=== PATIENT | male | born 1980 | race Caucasian/White ===

== ENCOUNTER 2025-03-17 11:56 | Emergency (ER) | payer MEDICAID, SELFPAY ==
[2025-03-17 12:05] VITALS: BP 147/90; PULSE 64; RESP 18; TEMP 36.7; O2SAT 96
--- NOTE | 2025-03-17 12:18 | XR_ITS ---
Examination: CT brain head without contrast. 2-D sagittal coronal reconstructions Date and time of exam:March 17, 2025 1408 hours INDICATIONS: Head pain today CTDI: vol (mGy):49.9 DLP: (mGycm):1008 Technique: Multiple CT axial sections of the brain have been obtained, 5 mm slice thickness. Contrast has not been administered. 2-D sagittal, coronal reconstructions have been obtained Low dose protocols were performed. One or more of the following dose reduction techniques were used; automated exposure control, adjustment of the mA and/or KV according to patient size, use of iterative reconstruction technique. Findings: No significant ventricular enlargement. Benign subarachnoid cyst left temporal lobe tip Intra-axial or extra-axial hemorrhage density is not seen. No mass effect or midline shift Basal cisterns are not remarkable. Fourth ventricle is midline. Cranial vault intact. Impression: Negative for acute hemorrhage, mass effect or midline shift
--- NOTE | 2025-03-17 12:18 | EDRME_ITS ---
Rapid Medical Screening Exam [facility] Arrival date/time: 03/17/25 11:56 45-year-old male presents to the emergency department today for complaints of generalized weakness and fatigue after taking an unknown substance last night Chief Complaint: Allergic Reaction Vital signs: Vital Signs Temperature 98.0 F 03/17/25 12:05 Pulse Rate 64 03/17/25 12:05 Respiratory Rate 18 03/17/25 12:05 Blood Pressure 147/90 H 03/17/25 12:05 Pulse Oximetry (%) 96 03/17/25 12:05 Oxygen Delivery Method Room Air 03/17/25 12:05
--- NOTE | 2025-03-17 12:18 | EKG_ITS ---
[facility] Test Date: 2025-03-17 Pat Name: ZAYNAB GO Department: Room: - Gender: Male Orientor: : 1980 Requested By: Tobias Noble (GERTRUDE) Order Number: [id number] Reading MD: Tobias Noble (GERTRUDE) Measurements Intervals [place] Rate: 65 P: 14 AK: 145 QRS: 1 QRSD: 89 T: 24 QT: 384 QTc: 401 Interpretive Statements SINUS RHYTHM No previous ECG available for comparison /store/S0/[id number]/ecg/[id number].pdf
--- NOTE | 2025-03-17 12:18 | XR_ITS ---
Examination: AP chest single view TECHNIQUE: Portable sitting AP chest single view March 17, 2025 1253 hours INDICATIONS: Onset chest pain today. FINDINGS: Mild parenchymal disease left base laterally Normal heart size Right lung clear IMPRESSION: Suspicious for early left base pneumonia
[2025-03-17 12:48] LABS: Basophils % (Auto) 0 % (0-2.5); Eosinophils # (Auto) 0.1 Thou/mm3 (0.0-0.5); Eosinophils % (Auto) 1 % (0-10); Hematocrit 47.1 % (41.0-53.0); Immature Granulocytes % (Auto) 0 % (0-0); Immature Granulocytes Auto 0.02 Thou/mm3 (0.00-0.00); Lymphocytes # (Auto) 1.3 Thou/mm3 (1.0-4.8); Lymphocytes % (Auto) 12 % (10-50); Mean Corpuscular Hemoglobin 28.6 pg (25.0-35.0); Mean Corpuscular Volume 84 fL (80-100); Monocytes # (Auto) 0.6 Thou/mm3 (0.0-0.8); Monocytes % (Auto) 6 % (0-12); Neutrophils # (Auto) 8.4 Thou/mm3 (1.8-7.7); Neutrophils % (Auto) 80 % (37-80); Nucleated Red Blood Cell % 0 /100 WBC (0); Platelet Count 313 Thou/mm3 (140-440); RDW Standard Deviation 40.3 fL (35.1-43.9); White Blood Count 10.4 Thou/mm3 (3.8-10.6)
[2025-03-17 13:02] LABS: Partial Thromboplastin Time 25.7 Seconds (22.0-36.0); Prothrombin Time 11.2 Seconds (9.0-12.2)
[2025-03-17 13:10] LABS: B-Type Natriuretic Peptide < 20 pg/mL (0-100)
[2025-03-17 14:08] LABS: Alanine Aminotransferase 19 U/L (10-49); Albumin, Serum 4.7 gm/dL (3.5-5.0); Albumin/Globulin Ratio 1.7 (1.2-2.2); Alcohol, Blood Medical < 3.0 mg/dL (0-10.0); Alkaline Phosphatase 109 U/L (46-116); Anion Gap 9 (7-16); Aspartate Amino Transferase 16 U/L (0-34); BUN/Creatinine Ratio 9 Ratio (12-20); Bilirubin,Total 0.6 mg/dL (0.3-1.2); Blood Urea Nitrogen 11 mg/dL (9-23); Calcium 9.5 mg/dL (8.3-10.6); Calcium (Corrected) 9.5 mg/dL (8.5-10.1); Chloride 102 mMol/L (98-107); Creatinine (Component) 1.2 mg/dL (0.6-1.3); Globulin 2.8 gm/dL (2.3-3.5); Glucose 117 mg/dL (74-106); Magnesium 2.4 mg/dL (1.6-2.6); Osmolality,Calculated 279 (275-295); Potassium 4.5 mMol/L (3.4-5.1); Sodium 140 mMol/L (136-145); Total Protein 7.5 gm/dL (5.7-8.2); Troponin I < 0.020 ng/mL (0.0-0.045); eGFR > 60 See Note
--- NOTE | 2025-03-17 16:51 | PD.EDADULT ---
ED General RME/HPI General Chief complaint: Allergic Reaction Stated complaint: TOOK friends Suboxone film (unknown dose), NOT NOR Time Seen by Provider: 03/17/25 14:27 Arrival date/time: 03/17/25 11:56 45-year-old male presents to the ED with a complaint of not feeling normal with nausea, vomiting and significant sedation following taking a friend's Suboxone film (unknown dose). He states he was having some left shoulder pain due to moving some heavy objects a few days ago. Friend at bedside states he hardly ever takes Tylenol or ibuprofen for any type of pain. Mode of arrival: wheelchair Limitations: altered mental status RME / HPI RME / HPI narrative: 03/17/25 11:56 45-year-old male presents to the emergency department today for complaints of generalized weakness and fatigue after taking an unknown substance last night Related Data Previous Rx's ?Medication ?Instructions ?Recorded amoxicillin 875 mg-potassium 1 tab PO BID #20 tabs 06/18/19 clavulanate 125 mg tablet (Augmentin) Allergies Allergy/AdvReac Type Severity Reaction Status Date / Time No Known Allergies Allergy Verified 03/17/25 12:01 Past Medical History Social History SMOKING STATUS: Current every day smoker ED Exam Narrative Physical exam: 45-year-old male, appears weak with altered mental status. Pinpoint pupils. General Limitations: Present altered mental status General appearance: Present lethargic Head Head exam: Present atraumatic and normocephalic Eye Eye exam: Present normal appearance; Absent scleral icterus or conjunctival injection Expanded Eye Exam Eyelids: bilateral: normal inspection Pupils: Bilateral: regular, round and size (Bilateral pinpoint pupils) Sclera/Conjunctival: bilateral: normal inspection Neck Neck exam: Present normal inspection and trachea midline Chest Chest inspection: Present normal inspection and symmetric chest wall rise Respiratory Respiratory exam: Present other (Diminished breath sounds bilaterally); Absent respiratory distress or wheezes Expanded Respiratory Exam Location: Left: decreased breath sounds, Right: decreased breath sounds, Upper: decreased breath sounds and Lower: decreased breath sounds Cardiovascular Cardiovascular exam: Present regular rate and normal rhythm; Absent systolic murmur Abdominal Exam Abdominal exam: Present soft; Absent distention or tenderness Rectal Exam Rectal exam: Present deferred Extremities Exam Extremities exam: Present normal inspection Back Exam Back exam: Present normal inspection and full ROM Psychiatric Psychiatric exam: Present flat affect Skin Skin exam: Present warm, dry, intact and normal color Course Orders Category Date Time Status EKG (ED ONLY) *Do not use* NOW Care 03/17/25 12:[address] head/brain wo con Stat Exams 03/17/25 12:18 Completed EKG (ED Only) Stat Exams 03/17/25 12:18 Draft XR chest 1V portable Stat Exams 03/17/25 12:18 Completed Alcohol, Blood Medical Stat Lab 03/17/25 12:35 Completed B-Type Natriuretic Peptide Stat Lab 03/17/25 12:35 Completed CBC Stat Lab 03/17/25 12:35 Completed Comprehensive Metabolic Panel Stat Lab 03/17/25 12:35 Completed Drug Screen,Urine Stat Lab 03/17/25 12:18 Ordered Magnesium Stat Lab 03/17/25 12:35 Completed Partial Thromboplastin Time Stat Lab 03/17/25 12:35 Completed Prothrombin Time with INR Stat Lab 03/17/25 12:35 Completed Troponin I Stat Lab 03/17/25 12:35 Completed Urinalysis Stat Lab 03/17/25 12:18 Ordered Vital Signs Vital signs: Vital Signs Temperature 98.0 F 03/17/25 12:05 Pulse Rate 64 03/17/25 12:05 Respiratory Rate 18 03/17/25 12:05 Blood Pressure 147/90 H 03/17/25 12:05 Pulse Oximetry (%) 96 03/17/25 12:05 Oxygen Delivery Method Room Air 03/17/25 12:05 Discharge Plan Prescriptions/Referrals Prescriptions/Med Rec: No Action amoxicillin-pot clavulanate [Augmentin] 875-125 mg tablet 1 tab PO BID Qty: 20 0RF Referrals: Socrates Patterson MD [Primary Care Provider] - In 1 week Patient/Caregiver Discharge Instructions Print Language: Botswanan
[2025-03-17 16:55] VITALS: PULSE 58
[2025-03-17] MEDS: NALOXONE INJ 1 MG/ML SYRINGE 2 ML 2 MG IV (17:36)
[2025-03-17] MEDS: SODIUM CHLORIDE 0.9% 1000 ML 1,000 ML 999 ML IV (17:37)
[2025-03-17 17:45] VITALS: BP 133/93; PULSE 57; RESP 14; O2SAT 99
[2025-03-17 17:58] VITALS: BP 137/90; PULSE 60; RESP 15; O2SAT 100
[2025-03-17 18:09] LABS: Base Excess, Venous 3 (-3-3); O2 Saturation, Venous 47 % (96-97); PCO2, Venous 55 mmHg (36-56); PO2, Venous 27 mmHg (15-58); pH, Venous 7.35 (7.33-7.66)
[2025-03-17 18:45] VITALS: BP 149/102; PULSE 74; RESP 16; TEMP 36.3; O2SAT 100
[2025-03-17 20:23] LABS: Collection Type, Urine Clean Catch; RBC,Urine 0 /hpf (0-3)
[2025-03-17 20:47] LABS: Bilirubin,Urine Negative (Negative); Blood,Urine Negative (Negative); Clarity,Urine Clear (Clear/Hazy); Color,Urine Yellow (Lt Yel-Yel); Glucose, Urine Negative (Negative); Hyaline Casts,Urine < 1 /hpf (0-1); Ketones,Urine Negative (Negative); Leukocyte Esterase,Urine Positive (Negative); Nitrite,Urine Negative (Negative); Protein,Urine 1+ (Neg - Trace); Specific Gravity,Urine 1.035 (1.001-1.035); Squamous Epithelial Cell,Urine < 1 /hpf (0-5); WBC,Urine 14 /hpf (0-5)
[2025-03-17 20:54] VITALS: BP 144/89; PULSE 75; RESP 17; TEMP 36.4; O2SAT 100
[2025-03-17] MEDS: KETOROLAC INJ 30 MG/ML VIAL IVP (20:55)
--- NOTE | 2025-03-17 21:35 | PC.NURSE ---
Patient requesting to leave, states, he no longer wants to wait and will follow up with PMD. Patient Alert and oriented x3. resp even and unlabored no acute distress noted. ambulates with steady gait. friend at bedside. [place]sequences explained of leaving against medical advice including up to , patient states he needs to take care of stuff and needs to leave. Encouraged to return if new or worsening symptoms developed. patient verbalized understanding. Md and charge nurse made aware.
[2025-03-17 22:15] LABS: Amphetamine/Methamp Scrn,U Positive (Negative); Barbiturate Screen,Urine Negative (Negative); Benzodiazepines Screen,Urine Negative (Negative); Benzoylecgonine Screen, Ur Negative (Negative); Fentanyl Screen,Urine Negative (Negative); Opiate Screen,Urine Negative (Negative); THC Screen,Urine Negative (Negative)
== END 2025-03-17 21:46 | disposition left against medical advice (07) ==
PROVIDERS: Nurse Practitioner Primary Care; Physician Assistant; Emergency Provider Emergency Medicine; PCP Family Medicine
DX: T78.40XA Allergy, unspecified, initial encounter (principal); R53.1 Weakness; Z53.29 Procedure and treatment not carried out because of patient's decision for other reasons; R53.83 Other fatigue; R51.9 Headache, unspecified
CPT/HCPCS: 36415; 36600; 70450; 71045; 80053; 80307; 80320; 81001; 82803; 83735; 83880; 84484; 85025; 85610; 85730; 93005; 96361; 96374; 99284; J1885; J2310; J7030; G0480

== ENCOUNTER 2025-10-10 21:39 | Emergency (ER) | payer MEDICAID, SELFPAY ==
[2025-10-10 21:50] VITALS: BP 127/85; PULSE 100; RESP 18; TEMP 36.8; O2SAT 96
--- NOTE | 2025-10-10 21:55 | XR_ITS ---
EXAMINATION: Testicular sonography complete TECHNIQUE: Grayscale sonographic images testes, assessment arterial inflow and venous outflow Doppler spectral analysis color flow analysis Date and time: October 10, 2025, 10:16 p.m. INDICATIONS: Left scrotal pain noticed beginning 1 week ago FINDINGS: Right testis 4.1 cm epididymis 25 mm 5 mm epididymal cyst Arterial flow to the testicle. No testicular mass Left testis 3.8 cm epididymis 3.6 cm Arterial flow test: No testicular mass Increased flow to the left epididymis Moderate left hydrocele Mild thickening of the scrotal nash IMPRESSION: Left epididymitis Moderate left hydrocele
--- NOTE | 2025-10-10 21:56 | EDNOTE_ITS ---
ED Male Genitalurinary RME/HPI General Chief complaint: Urogenital-Male Stated complaint: TESTICLE SWOLLEN Time Seen by Provider: 10/10/25 21:44 Source: patient, RN notes reviewed and old records reviewed Arrival date/time: 10/10/25 21:39 Mode of arrival: ambulatory Limitations: no limitations RME / HPI RME / HPI Narrative: 45yom presents to ED for 2-day history of left testicular tenderness and swelling. Denies preceding injury or trauma. No fever, nausea/vomiting, abdominal pain, dysuria, hematuria, penile discharge or rash/lesion reported. No medications or treatments since onset. Related Data Previous Rx's ?Medication ?Instructions ?Recorded amoxicillin 875 mg-potassium 1 tab PO BID #20 tabs clavulanate 125 mg tablet (Augmentin) doxycycline hyclate 100 mg capsule 100 mg PO BID 10 da ys #20 caps 10/10/25 ibuprofen 600 mg tablet 600 mg PO Q6H PRN pain #20 t abs 10/10/25 Allergies Allergy/AdvReac Type Severity Reaction Status Date / Time No Known Allergies Allergy Verified 10/10/25 21:40 Review of Systems Review of Systems Systems Reviewed: All systems reviewed, normal except as documented Constitutional Constitutional: Denies chills and Denies fever(s) Gastrointestinal Gastrointestinal: Denies abdominal pain, Denies nausea and Denies vomiting Genitourinary Genitourinary: Denies dysuria, Denies genital lesions, Denies hematuria, Denies penile discharge, Reports scrotal swelling and Reports testicular pain Past Medical History Surgical History OTHER SURGICAL HX: LLE ORIF Social History SMOKING STATUS: Current every day smoker SUBSTANCE USE: does not use ALCOHOL: Never Past Medical History Comments PMH COMMENT: denies pmhx ED Exam General Limitations: Present no limitations General appearance: Present alert and in no apparent distress Head Head exam: Present atraumatic and normocephalic Eye Eye exam: Present normal appearance, PERRL and EOMI ENT ENT exam: Present normal exam and mucous membranes moist Neck Neck exam: Present normal inspection and full ROM Chest Chest inspection: Present normal inspection and symmetric chest wall rise Respiratory Respiratory exam: Present normal lung sounds bilaterally; Absent respiratory distress Cardiovascular Cardiovascular exam: Present regular rate and normal rhythm Abdominal Exam Abdominal exam: Present soft; Absent distention, tenderness, guarding or rebound exam: Present other (Tufting Machine Operator present, Sofia tech. Left scrotal/testicular tenderness and mild swelling. No erythema or rash) Extremities Exam Extremities exam: Present normal inspection and full ROM Back Exam Back exam: Absent CVA tenderness (R) or CVA tenderness (L) Neurological Exam Neurological exam: Present alert and oriented X3 Psychiatric Psychiatric exam: Present normal affect and normal mood Skin Skin exam: Present warm, dry, intact and normal color Course Quality Measures none Orders Category Date Time Status US testicular Stat Exams 10/10/25 21:55 Completed Chlamydia/GC/TV - PCR Stat Lab 10/10/25 22:19 Received UA [Urinalysis] Stat Lab 10/10/25 22:19 Completed Ibuprofen Tab [Motrin Tab] Med 10/10/25 21:55 Discontinued 800 mg PO X1 ONE cefTRIAXone [Rocephin] 500 mg Med 10/10/25 23:13 Discontinued Lidocaine 1% Pf Vial 5ml [Xylocaine 1% Pf 5 ml] 1 ml IM X1 Vital Signs Vital signs: Vital Signs Temperature 98.2 F 10/10/25 21:50 Pulse Rate 100 10/10/25 21:50 Respiratory Rate 18 10/10/25 21:50 Blood Pressure 127/85 H 10/10/25 21:50 Pulse Oximetry (%) 96 10/10/25 21:50 Oxygen Delivery Method Room Air 10/10/25 21:50 Urogenital - Male MDM Narrative MDM Narrative:: 45yom presents to ED for 2-day history of left testicular tenderness and swelling. Denies preceding injury or trauma. No fever, nausea/vomiting, abdominal pain, dysuria, hematuria, penile discharge or rash/lesion reported. No medications or treatments since onset. Will treat for epididymitis, GC culture sent and pending. Patient is well- appearing, afebrile, vitals are stable. Recommended Motrin/Tylenol prn pain. Stable for discharge, RTED precautions given. Patient data External records reviewed:: [facility] previous records ( ED visit for drug overdose) Clinical information provided by:: patient Social determinants that could affect healthcare access:: other (specify) (poor access to healthcare) Patient has the following chronic illnesses:: none How is presenting disease/condition affected by chronic disease/condition?: no chronic disease Evaluation data The following diagnostics were reviewed and interpreted by me:: lab results and radiology exam(s) Lab and/or radiology exams considered but not ordered:: CT abd/pelvis: do not suspect kidney stone Interpretation Summary: UA +blood Testicular US: IMPRESSION: Left epididymitis Moderate left hydrocele Dictated By: Ricardo Lawrence MD Medications / Prescriptions Medications or Prescriptions considered but not ordered:: none Medication administrations:: Medication Administration History Discontinued Medications Ceftriaxone Sodium 500 mg/ (Lidocaine HCl 1 ml) 0 mg IM X1 ONE Stop: 10/10/25 23:14 Last Admin: 10/10/25 23:28 Dose: 500 mg Documented By: BD Ibuprofen (Ibuprofen Tab 400 Mg Tablet) 800 mg PO X1 ONE Stop: 10/10/25 21:56 Last Admin: 10/10/25 22:38 Dose: 800 mg Documented By: ANGELINE Above medication administered in ED Consultations Consultation(s) initiated? (list below): No Diagnosis Urogenital Male Differential Diagnosis: urinary tract infection, urethritis, epididymitis, prostatitis and inguinal hernia Most likely diagnosis given after review of the tests above:: Epididymitis, testicular swelling Admission Indicated Admission indicated?: not indicated Admission Request Was there a request for admission?: No Disposition Plan Disposition Plan: Discharge Discharge Attestation Discharge Attestation: The patient and all family members were given an opportunity to ask questions and understood the discharge instructions. Discharge instructions specifically effects, indications for sooner follow up or return to the emergency department, and the expected course of current diagnosis. Patient condition: Stable Discharge Plan Plan Patient Disposition: HOME (Self Care) Patient condition on transfer: Stable Prescriptions/Referrals Prescriptions/Med Rec: New doxycycline hyclate 100 mg capsule 100 mg PO BID 10 Days Qty: 20 0RF ibuprofen 600 mg tablet 600 mg PO Q6H PRN (Reason: pain) Qty: 20 0RF No Action amoxicillin-pot clavulanate [Augmentin] 875-125 mg tablet 1 tab PO BID Qty: 20 0RF Referrals: No Primary/Family,Physician [Primary Care Provider] - In 1 week Problem List Clinical Impression: Left epididymitis, Left hydrocele Patient/Caregiver Discharge Instructions Education Materials: ED Epididymitis Print Language: Hungarian Stand Alone Forms: Debbie Award Info., Work/School Release, Patient Portal Info Letter PA/SCALE RECLAMATION TENDER Supervising Physician PA/SCALE RECLAMATION TENDER Supervising Physician: Shaina
[2025-10-10 22:26] LABS: Collection Type, Urine Clean Catch
[2025-10-10 22:32] LABS: Bilirubin,Urine Negative (Negative); Blood,Urine 1+ (Negative); Clarity,Urine Clear (Clear/Hazy); Color,Urine Yellow (Lt Yel-Yel); Glucose, Urine Negative (Negative); Ketones,Urine Negative (Negative); Leukocyte Esterase,Urine Negative (Negative); Nitrite,Urine Negative (Negative); PH,Urine 6.0 (5.0-7.0); Protein,Urine Trace (Neg - Trace); RBC,Urine 9 /hpf (0-3); Specific Gravity,Urine 1.033 (1.001-1.035); Squamous Epithelial Cell,Urine 1 /hpf (0-5); Urobilinogen,Urine 2.0 mg/dL (0.0-1.0); WBC,Urine 5 /hpf (0-5)
[2025-10-10] MEDS: IBUPROFEN TAB 400 MG TABLET 800 MG PO (22:38)
[2025-10-11 10:21] LABS: Chlamydia trachomatis PCR Negative (Not Detect); Neisseria Gonorrhoeae DNA PCR Negative (Not Detect); Trichomonas Negative (Negative)
== END 2025-10-10 23:48 | disposition home or self-care (01) ==
PROVIDERS: Physician Assistant; Emergency Provider Emergency Medicine
DX: N45.1 Epididymitis (principal); N43.3 Hydrocele, unspecified
CPT/HCPCS: 76870; 81001; 87491; 87591; 87661; 96372; 99283; J0696; J3490; A9270